=== PATIENT | male | born 1990 | race Caucasian/White ===

== ENCOUNTER 2019-07-08 20:05 | Emergency (ER) | payer OTHER ==
[~2019-07-08] VITALS: Ht 167.6 cm; Wt 81.7 kg
== END 2019-07-08 21:45 | disposition home or self-care (01) ==
LOC: ER 20:05
DX: L23.7 Allergic contact dermatitis due to plants, except food (principal); Z88.0 Allergy status to penicillin
CPT/HCPCS: 96372; 99283-25; J1100; J3301; Q0163

== ENCOUNTER 2025-03-23 15:38 | Observation (INO) | payer OTHER ==
[~2025-03-23] VITALS: Ht 167.6 cm; Wt 89.8 kg
[2025-03-23 16:35] LABS: BASOPHILS ABSOLUTE AUTO 0.05 K/mm3 (0.00-0.23); BASOPHILS PERCENT AUTO 1 % (0-2); EOSINOPHILS ABSOLUTE AUTO 0.09 K/mm3 (0.00-0.68); EOSINOPHILS PERCENT AUTO 1 % (0-6); Hematocrit 43.1 % (37.0-53.0); Hemoglobin 14.9 g/dL (13.5-17.5); IMMATURE GRAN ABSOLUTE AUTO 0.20 K/mm3 (0.00-0.10); IMMATURE GRAN PERCENT AUTO 2 % (0-1); LYMPHOCYTES ABSOLUTE AUTO 1.90 K/mm3 (0.84-5.20); LYMPHOCYTES PERCENT AUTO 17 % (21-46); MONOCYTES ABSOLUTE AUTO 0.96 K/mm3 (0.16-1.47); MONOCYTES PERCENT AUTO 9 % (4-13); Mean Corpuscular HGB Conc 34.6 g/dL (31.5-36.5); Mean Corpuscular Volume 91 fL (80-100); NEUTROPHILS ABSOLUTE AUTO 7.86 K/mm3 (1.96-9.15); NEUTROPHILS PERCENT AUTO 71 % (41-73); NRBC ABSOLUTE 0.00 K/mm3 (0.00-0.02); NRBC Auto 0.0 /100 WBC (0.0-0.2); Platelet Count 245 K/mm3 (150-400); RDW Coefficient Variation 13.2 % (11.7-14.2); RDW Standard Deviation 43.7 fL (35.1-46.3)
[2025-03-23 17:02] LABS: Source, Urine Clean Catch
[2025-03-23 17:03] LABS: Ethanol (Alcohol), Blood, Med <3 mg/dL; Salicylate <1.7 mg/dL (2.8-20.0)
[2025-03-23 17:04] LABS: Alanine Aminotransfer (ALT/SGP 27 U/L (12-78); Albumin, Blood 3.9 g/dL (3.4-5.0); Albumin/Globulin Ratio 1.1 (0.8-1.8); Anion Gap 7 mmol/L (3-11); Aspartate Aminotrans (AST/SGOT 20 U/L (12-37); Bilirubin, Total 0.2 mg/dL (0.1-1.0); Blood Urea Nitrogen 12 mg/dL (8-24); CO2, Blood 24 mmol/L (21-32); Calcium, Blood 8.9 mg/dL (8.5-10.1); Chloride, Blood 110 mmol/L (98-108); Creatinine, Blood 1.02 mg/dL (0.60-1.20); Globulin, Blood 3.4 g/dL (2.2-4.0); Glucose, Blood 118 mg/dL (70-99); Potassium, Blood 3.8 mmol/L (3.5-5.5); Sodium, Blood 137 mmol/L (136-145); Total Protein, Blood 7.3 g/dL (6.4-8.2)
[2025-03-23 17:05] LABS: Bilirubin, Urine Neg (Neg); Color, Urine Yellow (P-Yellow); Glucose Qualitative, Urine Neg (Neg); Ketones, Urine Neg (Neg); Leukocyte Esterase, Urine Neg (Neg); Protein, Urine Neg (Neg); Specific Gravity, Urine 1.020 (1.003-1.022); Urobilinogen, Urine NORM (Normal)
[2025-03-23 17:07] LABS: Acetaminophen, Random <2.0 ug/mL (10.0-30.0)
[2025-03-23 17:24] LABS: U Amphetamine Screen Not Detected; U Barbituate Screen Not Detected; U Benzodiazapine Screen Not Detected; U Buprenorphine Screen Not Detected; U Cannabinoids Screen DETECTED; U Cocaine Screen Not Detected; U Methadone Screen Not Detected; U Methamphetamine Screen Not Detected; U Opiates Screen Not Detected; U Oxycodone Screen Not Detected; U Phencyclidine Screen Not Detected
[2025-03-23] MEDS ORDERED: LAMOTRIGINE25 M4 PO (18:30)
[2025-03-23] MEDS ORDERED: YUMVS VITAMIN25 MCG PO (18:31)
[2025-03-23] MEDS ORDERED: PRAZOSIN HCL1 M2 PO (18:32)
[2025-03-23 19:54] VITALS: BP 154/94
[2025-03-23] MEDS ORDERED: TOPI25 PO (21:57)
[2025-03-23] MEDS ORDERED: MAGN84 PO (21:59)
== END 2025-03-23 20:11 | disposition other institution (70) ==
LOC: ER 15:38 → EOR 15:39
PROVIDERS: Physician Assistant; ADMIT Emergency Medicine
DX: F32.A Depression, unspecified (principal); F41.0 Panic disorder [episodic paroxysmal anxiety]; I10 Essential (primary) hypertension; Z79.899 Other long term (current) drug therapy; Z80.0 Family history of malignant neoplasm of digestive organs
CPT/HCPCS: 36415; 80053; 80320; 81003; 85025; 86592; 99285; A9270; G0378; G0480

== ENCOUNTER 2025-03-23 18:24 | Inpatient (IN) | payer OTHER ==
[~2025-03-23] VITALS: Ht 167.6 cm; Wt 90.5 kg
[2025-03-23] MEDS ORDERED: LAMOTRIGINE25 M4 PO (18:30)
[2025-03-23] MEDS ORDERED: YUMVS VITAMIN25 MCG PO (18:31)
[2025-03-23] MEDS ORDERED: PRAZOSIN HCL1 M2 PO (18:32)
[2025-03-23 20:37] VITALS: BP 154/108
[2025-03-23] MEDS ORDERED: Aluminum Hydroxide 320MG/5ML 473 ML PO PRN (20:40)
[2025-03-23] MEDS ORDERED: Polyethylene Glycol 3350 17 gm PO PRN (20:45)
[2025-03-23] MEDS ORDERED: Ondansetron 4 MG SoluTab MM PRN (20:45)
[2025-03-23 20:52] VITALS: BP 154/108
[2025-03-23] MEDS ORDERED: TOPI25 PO (21:57)
[2025-03-23] MEDS ORDERED: MAGN84 PO (21:59)
--- NOTE | 2025-03-23 23:02 | NUR ---
ADMIT ARRIVED 2014 PATIENT ARRIVED TO [facility] FROM ED WITH AND AKOSUA WILLARD. PATIENT COOPERATIVE WITH INTAKE. SKIN CHECK DONE WITH LUCIO CLEANING RN SECOND RN, NO ISSUES SEEN. PATIENT CONTINUES TO HAVE SI THOUGHTS, WITH NO PLAN WHILE HERE. PLAN AT HOME IS TO OD ON PILLS AND ALCOHOL. PATIENT VERBALIZED THAT HE HAS HAD AN INCREASE IN ALCOHOL CONSUMPTION AND HAS CHANGED TO HARD ALCOHOL. ONE OF HIS STRESSORS IS THAT HE HAS BEEN SLEEPING AT A FRIENDS HOUSE ON HIS COUCH AND IS HAVING DIFFICULTY SLEEPING DUE TO KIDS IN THE HOUSE BEING AWAKE AT ALL TIMES. HAS HX OF CHRONIC MIGRANS WITH PAIN 4/10 ON AVERAGE, DUE TO HX TBI. DENIES HI. DENIES AVH. PATIENT GIVEN SNACK DURING ADMIT QUESTIONS, ONLY EATING SMALL AMT, VERBALIZED THAT HE HAS HAD POOR APPETITE LATELY. PATIENT GIVEN TOUR OF UNIT. PATIENT NORMALLY WEARS CPAP AT NIGHT, VERBALIZED THAT HE HAS NOT BEEN WEARING THE CPAP LATELY AND UNDERSTAND THAT HE WILL NOT BE ABLE TO USE ONE WHILE HERE. VERBALIZED THAT HE HAS A LOUD SNORE, PLACED IN PRIVATE ROOM WHILE IT IS AVAILABLE. CONTINUE TO MONITOR Q15 MIN T/O NIGHT.
--- NOTE | 2025-03-24 04:26 | NUR ---
SHIFT SUMMARY PATIENT APPEARS TO BE SLEEPING WELL T/O NIGHT. RESP EVEN AND UNLABORED. SEE PREVIOUS CHARTING FOR ADMIT NOTE. CONTINUE TO MONITOR Q15MIN
[2025-03-24 07:52] LABS: CHOL/HDL RATIO 4.4; Cholesterol 218 mg/dL (50-200); HDL Cholesterol 49 mg/dL (>39); LDL/HDL RATIO 2.8; Low Density Lipoprotein Chol 139 mg/dL (0-110); Triglycerides 149 mg/dL (30-140); Very Low Density Lipoprot Chol 29 mg/dL (6-28)
[2025-03-24] MEDS ORDERED: Multivitamins 1 Tab PO SCH (09:00)
[2025-03-24 09:09] VITALS: BP 138/105
--- NOTE | 2025-03-24 17:24 | NUR ---
SHIFT SUMMARY: PT ALERT, ORIENTED AND COOPERATIVE WITH CARE. HE DENIES SI, HI AND AVH. STATES THAT HE DIDN'T SLEEP WELL LAST NIGHT. ENCOURGED PT TO REPORT THIS TO HIS NOC SHIFT RN IF IT HAPPENS AGAIN TONIGHT FOR POSSIBLE PRN. PT REPORTED ANXIETY OF 8/10. HE WAS MEDICATED ACCORDING TO MASS SCORE WITH VISTARIL PER EMAR AND REPORTED IMPROVEMENT. PT SPENT MOST OF THE DAY RESTING IN HIS BED. HE DID ATTEND MEALS. PT WAS UPDATED ON MEDICATION CHANGES AND WAS AGREEABLE AD COMPLANT WITH MEDS.
[2025-03-24 20:51] VITALS: BP 137/97
[2025-03-24] MEDS ORDERED: LACTATE PO SCH (21:00)
[2025-03-24] MEDS ORDERED: MAGNESIUM PO SCH (21:00)
--- NOTE | 2025-03-25 04:37 | NUR ---
SHIFT SUMMARY: PATIENT WAS IN HIS ROOM RESTING WITH EYES CLOSED AT THE BEGINNING OF THE SHIFT. HE WAS EASILY AWAKENED TO HIS NAME STATED SOFTLY. HE WAS SOMEWHAT GUARDED BUT PLEASANT. HE WAS ABLE TO ANSWER INTERNATIONAL ACCOUNT REPRESENTATIVE QUESTIONS IN A LOGICAL AND LINEAR MANNER. HE STATED THAT "I'M GLAD TO BE HERE" AND "THIS IS BETTER THAN I THOUGHT IT WOULD BE" BUT THAT HE STILL HAS "SADNESS AND DEPRESSION" THAT HE IS WORKING THROUGH. HE DENIED SUICIDAL IDEATION, THOUGHTS OF SELF HARMING AND A/V/T HALLUCINATIONS. HIS CIWA SCORE WAS 0. HE PARTICIPATED IN SNACK AND WRAP UP GROUP AT 2030 IN THE DINING AREA, AND WAS COMPLIANT WITH EVENING MEDICATIONS. HE KNEW WHAT HIS MEDICATIONS WERE, AND WANTED TO ASK QUESTIONS. HE REQUESTED TRAZODONE FOR INSOMNIA, WHICH WAS GIVEN TO GOOD EFFECT. HE WENT TO BED AFTER SNACK TIME AND WAS NOTED TO BE RESTING QUIETLY WITH EYES CLOSED AND RESPIRATIONS CONFIRMED FOR THE REMAINDER OF THE SHIFT. CONTINUING TO MONITOR FOR SAFETY WITH Q15 MINUTE CHECKS.
[2025-03-25] MEDS ORDERED: Cholecalciferol 1000 Unit Tablet (=25MCG) PO SCH (09:00)
[2025-03-25 09:10] VITALS: BP 126/99
--- NOTE | 2025-03-25 16:48 | NUR ---
SHIFT SUMMARY: PT ALERT, ORIENTED AND COOPERATIVE WITH CARE. PT STATED "I'M STILL IN FIGHT OR FLIGHT, BUT I LIVE THAT WAY" WHEN ASKED ABOUT HIS MOOD. HE REPORTED 8/10 ANXIETY BUT DECLINED PRN MEDICATION. STATED, "I REALLY DON'T WANT TO TAKE ANYTHING MORE" . PT AFFECT IS GAURDED AND FRUSTRATED DUINT OUR CONVERSATION. DISCUSSED WANTING TO GO HOME SO THAT HE CAN SLEEP BETTER AND HAVE HIS C-PAP. ENCOURAGED HIM TO DISCUSS THIS WITH DR. BLACKMAN. PT DENIES SI, HI AND AVH. HE SPENT MUCH OF THE DAY RESTING ON HIS BED WAS PRESENT FOR MEALS AND COPMPLIANT WITH MEDICATIONS. MONITORED WITH Q 15 MINUTE CHECKS FOR SAFETY PER UNIT PROTOCOL.
[2025-03-25 20:38] VITALS: BP 143/103
--- NOTE | 2025-03-26 04:20 | NUR ---
SHIFT SUMMARY: PATIENT WAS IN BED RESTING BUT AWAKE AT THE BEGINNING OF THE SHIFT. HE WAS ABLE TO ANSWER [employer] ARCHITECT QUESTIONS IN A LOGICAL AND LINEAR MANNER. HE STATED, "I'M UPSET BECAUSE I'M NOT BEING GIVEN MY VITAMINS." HE STATED, "MY DOCTOR TOLD ME I'M QUITE LOW ON MAGNESIUM AND VITAMIN D, DANGEROUSLY LOW, SO I'M UPSET ABOUT IT." HE WOULD LIKE TO BE PRESCRIBED A MULTI VITAMIN WHILE HERE, DUE TO HIS CONCERNS REGARDING A DEFICIENCY. HE DENIED SUICIDAL IDEATION, THOUGHTS OF SELF HARMING AND A/V/T HALLUCINATIONS. HE STATED, "I HAD A GOOD DAY, BUT I'M JUST TIRED". HE PARTICIPATED IN SNACK AND WRAP UP GROUP, AND WAS COMPLIANT WITH EVENING MEDICATIONS. AN ORDER FOR TRAZODONE FOR INSOMNIA AND VISTARIL FOR ANXIETY X1 NOW WAS OBTAINED DUE TO HIS CONCERNS REGARDING "I DIDN'T SLEEP LAST NIGHT" AND "I'M HAVING ANXIETY DUE TO NOT SLEEPING". HE WAS GETTING UPSET AND HAD A MASS SCORE OF 5. THE TRAZODONE AND VISTARIL WERE EFFECTIVE, AND HE HAD NO COMPLAINTS DURING THE SHIFT. HE WENT BACK TO BED AFTER SNACK, AND WAS NOTED TO BE RESTING QUIETLY WITH EYES CLOSED AND RESPIRATIONS CONFIRMED FOR THE REMAINDER OF THE SHIFT. CONTINUING TO MONITOR FOR SAFETY WITH Q15 MINUTE CHECKS.
[2025-03-26 08:49] VITALS: BP 137/106
[2025-03-26] MEDS ORDERED: RIZATRIPTAN10 MG SL (09:55)
[2025-03-26] MEDS ORDERED: OLAN5 PO (09:56)
[2025-03-26] MEDS ORDERED: TOPI50 PO (09:56)
[2025-03-26] MEDS ORDERED: CYCL10 PO (09:57)
[2025-03-26] MEDS ORDERED: MAGNESIUM OXID500 MG PO (09:57)
[2025-03-26] MEDS ORDERED: Ventolin5 MG/1 ML INH (09:58)
[2025-03-26] MEDS ORDERED: Rizatriptan Benzoate 10 MG / TAB SoluTab SL PRN (11:45)
[2025-03-26] MEDS ORDERED: Albuterol 2.5 MG/3 ML VIAL INH PRN (11:45)
--- NOTE | 2025-03-26 14:38 | NUR ---
IMPORTANT DISCHARGE INFORMATION PATIENT REQUESTING DISCHARGE 03/27/25 AROUND 11AM. I WILL CALL [facility] AT [phone]. ALL PARTIES VERBALIZE AN UNDERSTANDING. PATIENT HAS A FOLLOW UP WITH AURELIO COOK ON 04/02/95 AT 4PM. [facility] ON . FOLLOW UP WITH [facility]: HI FAX NUMBER RESOURCES: [facility], [facility] AND [facility]
--- NOTE | 2025-03-26 17:28 | NUR ---
SHIFT SUMMARY PT A/O X4; DENIES SI, HI, AVT HALLUCINATIONS. AT THE BEGINNING OF THE SHIFT THE PT REPORTED THAT HE WAS FRUSTRATED WITH HIS MEDICATIONS AND FELT HE WAS NOT GETTING ALL OF HIS CORRECT MEDICATIONS. PT PARTICULARLY CONCERNED ABOUT NOT GETTING HIS VITAMIN D AND HIS MAGNESIUM. PT REQUESTED THAT AN UPDATED MEDICATION LIST BE OBTAINED FROM HIS PCP. THIS RN REACHED OUT TO PT'S PCP AND OBTAINED UPDATED MEDICATION LIST. PT DID NOT ATTEND MOST GROUPS AND SPENT MOST OF THE DAY IN HIS ROOM DUE TO BEING FRUSTRATED. HOWEVER, THE PT'S MOOD IMPROVED THIS AFTERNOON AFTER DISCUSSING MEDICATION CONCERNS AND DISCHARGE PLANS. AFFECT IS EUTHYMIC AND PT MEDICATED WITH TYLENOL X1 THIS SHIFT FOR A HEADACHE. PT TO POTENTIALLY DISCHARGE TOMORROW.
[2025-03-26 20:29] VITALS: BP 142/106
--- NOTE | 2025-03-26 21:44 | NUR ---
ASSUMED PT CARE @1900. PT IS AA&O TO PERSON, PLACE, SITUATION, AND TIME. HE IS PLEASANT AND COOPERATIVE WITH CARE. HE IS COMPLIANT WITH MEDICATIONS AND DENIES ANY ADVERSE EFFECTS. HE STATES HE IS HAPPY THAT HIS MEDICATION REC HAS BEEN SORTED. AND REPORTS HE CAN BE "OCD" ABOUT TAKING HIS MEDICATIONS ON TIME AND AT THE SAME TIME. HE GIVES A THUMBS UP WHEN ASKED ABOUT MOOD, AFFET IS CONCRUENT. HE DENIES SI, AVH, AND REPORTS HE IS EXCITED AND FEELS LIKE HE IS READY FOR DC. HE PARTICIPATED IN WRAP UP GROUP AND SNACK. HE DID NOT REQUEST ANY PRN MEDICATIONS AND IS RESTING IN BED, EYES CLOSED, RR EVEN AND UNLABORED. WILL CONTINUE PLAN OF CARE
--- NOTE | 2025-03-27 04:27 | NUR ---
SHIFT SUMMARY: THIS RN TOOK OVER PATIENT CARE AT 2330. PATIENT CONTINUED TO REMAIN IN BED RESTING WITH EYES CLOSED AND RESPIRATIONS CONFIRMED THROUGHOUT THE NIGHT. HE HAD NO STATED NEEDS OR CONCERNS. CONTINUING TO MONITOR FOR SAFETY WITH Q15 MINUTE CHECKS.
[2025-03-27 09:02] VITALS: BP 124/98
[2025-03-27] MEDS ORDERED: HYDCHL25 PO (10:22)
[2025-03-27] MEDS ORDERED: HYDPAM50 PO (10:23)
[2025-03-27] MEDS ORDERED: LAMO25 PO (10:25)
[2025-03-27] MEDS ORDERED: OLAN5 PO (10:26)
[2025-03-27] MEDS ORDERED: MAGNESIUM OXID500 MG PO (10:26)
[2025-03-27] MEDS ORDERED: PRAZ1 PO (10:27)
[2025-03-27] MEDS ORDERED: TOPI50 PO (10:28)
[2025-03-27] MEDS ORDERED: TRAZ50 PO (10:29)
[2025-03-27] MEDS ORDERED: MELA3 PO (10:37)
--- NOTE | 2025-03-27 11:53 | NUR ---
1132am- discharge Patient was discharged this morning, to home. He was picked up by [facility] at 1132am. The patients discharge paperwork, medication list and education were reviewed and the patient signed his papers. Discharge medications and new scripts needed were faxed to [facility] and a confirmation sheet was received. Belonings were returned.
== END 2025-03-27 11:32 | disposition home or self-care (01) | DRG 885 ==
LOC: BHU 18:24
PROVIDERS: ADMIT Psychiatry & Neurology Psychiatry
DX: F31.9 Bipolar disorder, unspecified (principal); R45.851 Suicidal ideations; Z88.5 Allergy status to narcotic agent; Z88.0 Allergy status to penicillin; I10 Essential (primary) hypertension; F10.90 Alcohol use, unspecified, uncomplicated; F12.90 Cannabis use, unspecified, uncomplicated; Z79.899 Other long term (current) drug therapy; E78.5 Hyperlipidemia, unspecified
CPT/HCPCS: 36415; 80061; 83036; A9270